=== PATIENT | female | born 1985 | race African-American/Black ===

== ENCOUNTER 2019-07-22 17:23 | Emergency (ER) | payer SELFPAY ==
[2019-07-22 17:39] VITALS: BP 141/92
--- NOTE | 2019-07-22 18:16 | ER Document Report ---
HPI - HPI Patient complains to provider of: left leg pain Time Seen by Provider: 07/22/19 18:06 Onset/Duration: Waxing and waning Quality of pain: Achy Severity: Mild Pain Level: 2 Context: 34 Yr old female pt, with the listed pmh, here for left leg/calf pain x a few weeks. hx of a remote dvt in this leg after and an unrelated surgery during her post period which she states resulted in her prior dvt many years ago. she was on blood thinners for some months then but states she hasn't been on them in years and hasn't had any more blood clots. states she noticed a slow ache in her left leg that has become more persistent over the last few weeks and this week and she didn't know if it was just her sciatica or a pulled muscle or a blood clot and she became nervous it may be another blood clot so she came in to get an US to make sure it wasn't a blood clot again. no cp, sob, or fever. no numbness,weakness or tingling. no surgeries on this extremity. otc meds controlling pain. hasn't sought care until now. no pain anywhere else. pt able to walk. denies intoxication. pain worse with movement and palpation. better with rest. no other fall or trauma or associated sx. denies . no edema. no blood thinners. Pt denies any prior personal cardiac history. denies any family history of sudden or cardiac dz at a young age. no syncope. no palpitations. no hx of mi, cva, tia, or cad. no ripping or tearing sensation. No recent long distance travel/immobilization, recent surgery, exogenous estrogen use, hemoptysis, or history of cancer. No prior history of arrhythmias. Exacerbated by: Movement, Walking Relieved by: Remaining still Similar symptoms previously: Yes Recently seen / treated by doctor: No - ROS Systems Reviewed and Negative: Yes All other systems reviewed and negative - to include 10 systems unless mentioned in the hpi - REPRODUCTIVE Reproductive: DENIES: : Past Medical History - General Information source: Patient - Social History Smoking Status: Never Smoker Frequency of alcohol use: None Drug Abuse: None Family History: Reviewed & Not Pertinent Patient has suicidal ideation: No Patient has homicidal ideation: No - Past Medical History Cardiac Medical History: Reports: Hx DVT - many years ago Denies: Hx Atrial Fibrillation, Hx Congestive Heart Failure, Hx Coronary Artery Disease, Hx Heart Attack, Hx Hypercholesterolemia, Hx Peripheral Vascular Disease, Hx Pulmonary Embolism Endocrine Medical History: Reports: Hx Hypothyroidism. Denies: Hx Diabetes Mellitus Type 1, Hx Diabetes Mellitus Type 2 Past Surgical History: Reports: Hx Thyroid Surgery - Immunizations Immunizations up to date: Yes Vertical Provider Document - CONSTITUTIONAL Agree With Documented VS: Yes Exam Limitations: No Limitations General Appearance: WD/WN Notes: >>>> PHYSICAL_EXAM: GENERAL_APPEARANCE: well_nourished, alert, cooperative, no_acute_distress, no_obvious_discomfort. pleasant, obese young black female, smiling, speaking in full sentences, in no sign of pain or resp distress, no one is with her VITALS: reviewed, see vital signs table. HEAD: no_swelling\tenderness on the head. normocephalic. atraumatic. no walsh signs. no raccoons eyes. EYES: PERRL, EOMI, conjunctiva_clear. NOSE: no_nasal_discharge. MOUTH: (-)decreased moisture. THROAT: no_tonsilar_inflammation, no_airway_obstruction. no_lymphadenopathy NECK: supple, no_neck_tenderness, full rom. full strength. no meningeal signs. no sign of central cord syndrome. BACK: no_back_tenderness. CHEST_WALL: no_chest_tenderness. no overlying skin changes LUNGS: no_wheezing, ctab (-)accessory muscle use, good air exchange bilateral. HEART: normal_rate, normal_rhythm, ABDOMEN: normal_BS, soft, no_abd_tenderness, (-)guarding, (-)rebound, no distension or peritoneal signs. no cva ttp EXTREMITIES: strength 5/5 in all_extremities, good pulses in all_extremities, no_swelling\tenderness in the extremities other than mild ttp over posterior left knee and prox tib/fib, no palpable cords, no_edema. full rom. normal gait. good pulses. brisk cap refill. good hand plaster caster. neg christa sign on the right. questionable christa sign on the left. no foot drop. neg dee squeeze NEURO: motor and sensation intact, cranial nerves 2-12 intact, cerebellar fxn intact SKIN: warm, dry, good_color, no_rash. no overlying skin changes. MENTAL_STATUS: speech_clear, oriented_X_3, normal_affect, responds_appropriately to questions. Course - Re-evaluation Re-evalutation: 07/22/19 20:56 Pt here for left leg pain wanting dvt to be ruled out since she has a hx of this in the very remote past. pt states she is self pay and doesn't want any further workup or blood work and just the US to cut down on her bill. her prelim doppler US read was neg for anything acute per US tech as the reading radiologist report didn't come back the same day. advised will call pt with any changes in the final rad report once it returns. advised sx care. otc meds for pain. ice/heat to the area. she didn't want any pain meds for home use or here, otc meds controlling her pain. advised to f/u with pcp in 1-2 days. return for any worsening symptoms. vss. well appearing. satting well on ra. neurononfocal. pt understands and agrees to plan. On reexam, pt remained stable. nontoxic. well appearing. pain controlled. tolerating po. requesting to go home. Documentation achieved through voice recording which may lead to some occasional accidental typographical errors. Extensive efforts have been made to proof read documentation to make sure these are the least as possible. Category Date Time Status Doppler [VENOUS UNILATERAL LOWER] [CARDIO] Stat Cardiology 07/22/19 18:35 Taken - Vital Signs Vital signs: Temp Pulse Resp BP Pulse Ox 98.4 F 75 18 141/92 H 100 07/22/19 17:38 07/22/19 17:38 07/22/19 17:38 07/22/19 17:38 07/22/19 17:38 Temp Pulse Resp BP Pulse Ox 07/22/19 17:38 98.4 F 75 18 141/92 H 100 - Diagnostic Test Radiology reviewed: Image reviewed, Reports reviewed Radiology results interpreted by me: 07/22/19 20:55 Clair the [employer] tech gave me the unofficial prelim reading of the LLE doppler US and stated it was negative for dvt and svt since the radiologist on tonight doesn't provide a stat report. pt informed of this. final rad report of LLE doppler US: negative for any acute findings per rad and reviewed by myself Discharge - Discharge Clinical Impression: Left leg pain Condition: Good Disposition: HOME, SELF-CARE Instructions: Leg Pain Nonspecific ([facility]) Additional Instructions: Follow-up with PCP in 1 to 2 days. Return for any worsening symptoms. tylenol or motrin as needed for any pain if not allergic. ice/heat to the area. epson salt soaks Forms: Return to Work
--- NOTE | 2019-07-22 21:28 | VASCULAR PRELIM REPORT ---
Provider Note Provider Note: Negative for DVT in the left Common Femoral vein and the right lower extremity.
--- NOTE | 2019-07-23 10:27 | XCELERA REPORT ---
[address] [place] [facility] [address] Lower Extremity Venous Evaluation Procedure: Color flow and duplex imaging of the veins of the left lower extremity as well as the right Common Femoral vein. Right Sided Venous Evaluation Normal vessel filling wall to wall, compression and augmentation as well as Colour flow down to the infrageniculate veins. Left Sided Venous Evaluation The left common femoral vein is fully compressible. Spontaneous and phasic flow is present in the left common femoral vein. Interpretation Summary No duplex evidence of DVT or obstruction in the left lower extremity nor in the right Common Femoral vein. Name: HARRIET CARCAMO Age: 34 yrs Gender: Female : 1985 Patient Status: Preadmit Patient Location: ER Study Date: 07/22/2019 07:24 PM Reason For Study: LLE pain/swelling, hx of dvt in the past Ordering Physician: DENIS LIRA Performed By: Carmel Oliveros : DENIS LIRA > Kev Valadez
== END 2019-07-22 20:58 | disposition home or self-care (01) ==
LOC: ER 17:23
DX: M79.605 Pain in left leg (principal); Z86.718 Personal history of other venous thrombosis and embolism
CPT/HCPCS: 93971; 99283